=== PATIENT | female | born 1980 | race Caucasian/White ===

== ENCOUNTER 2020-11-14 00:08 | Emergency (ER) | payer OTHER ==
[2020-11-14] MEDS ORDERED: Ketorolac Tromethamine 15 MG/ML VIAL ONE (00:44)
[2020-11-14 00:52] LABS: #Monocytes 0.6 10x3/uL (0.0-1.1); #Neutrophils 4.4 10x3/uL (1.5-8.4); %Basophils 0.4 % (0.0-2.0); %Eosinophils 0.5 % (0.0-6.0); %Lymphocytes 37.8 % (18.0-47.0); %Monocytes 7.2 % (0.0-10.0); %Neutrophils 53.9 % (40.0-75.0); Hemoglobin 13.5 g/dL (12.0-15.5); Mean Corpuscular Hemoglobin 25.7 pg (27.0-33.0); Mean Corpuscular Volume 80.2 fl (81.6-98.3); Mean Platelet Volume 9.4 fl (7.4-10.4); Platelet Count 446 10x3/uL (150-450); RBC Distribution Width 12.4 % (11.5-14.5); Red Blood Cell (RBC) Count 5.26 10x6/uL (3.90-5.03); White Blood Cell (WBC) Count 8.1 10x3/uL (3.5-10.5)
[2020-11-14 01:06] LABS: ALT (SGPT) 27 U/L (8-55); AST (SGOT) 16 U/L (5-34); Acetaminophen Less than 6.0 mcg/mL (10.0-30.0); Albumin 4.6 g/dL (3.5-5.0); Alcohol Less than 10 mg/dL (Less than 10); Alkaline Phosphatase 78 U/L (40-110); Anion Gap 17 mmol/L (10-20); BUN (Urea Nitrogen) 14 mg/dL (7.0-18.7); Bilirubin, Total 0.2 mg/dL (0.2-1.2); Calc. Creatinine Clearance 0 mL/min (70-130); Calcium 9.7 mg/dL (7.8-10.44); Carbon Dioxide 25 mmol/L (22-29); Chloride 105 mmol/L (98-107); Globulin 3.1 g/dL (2.4-3.5); Glucose 81 mg/dL (70-105); Lipase 26 U/L (8-78); Magnesium 2.1 mg/dL (1.6-2.6); Potassium 3.5 mmol/L (3.5-5.1); Protein, Total 7.7 g/dL (6.0-8.3); Salicylate 23.6 mg/dL (15.0-30.0); Sodium 143 mmol/L (136-145)
[2020-11-14 02:02] LABS: Amphetamine Detected (NotDetected); Barbiturates Screen Not Detected (NotDetected); Benzodiazepine Screen Not Detected (NotDetected); Cocaine Metabolite Screen Not Detected (NotDetected); Methadone Not Detected (NotDetected); Methamphetamine Detected (NotDetected); Opiate Screen Not Detected (NotDetected); Oxycodone Screen Not Detected (NotDetected); Phencyclidine (PCP) Not Detected (NotDetected); THC/Cannabinoid Screen Not Detected (NotDetected); Tricyclic Screen Not Detected (NotDetected)
== END 2020-11-14 02:11 | disposition home or self-care (01) ==
LOC: CSHERS 00:08
DX: U07.1 COVID-19 (principal); J12.82 Pneumonia due to coronavirus disease 2019; E03.2 Hypothyroidism due to medicaments and other exogenous substances; T50.905A Adverse effect of unspecified drugs, medicaments and biological substances, initial encounter; I50.9 Heart failure, unspecified; M32.9 Systemic lupus erythematosus, unspecified; F17.290 Nicotine dependence, other tobacco product, uncomplicated; Z79.899 Other long term (current) drug therapy
CPT/HCPCS: 71275; 80053; 80306; 80307; 83690; 83735; 83880; 84439; 84443; 84484; 85025; 85379; 93005; 96374; J1885

== ENCOUNTER 2021-09-06 04:23 | Emergency (ER) | payer OTHER ==
[2021-09-06] MEDS ORDERED: Oxymetazoline HCl 0.05% ( 15 ML ) ONE (04:46)
[2021-09-06] MEDS ORDERED: Acetaminophen 500 MG TAB ONE (04:47)
[2021-09-06] MEDS ORDERED: Lidocaine 2% PF 5 ML VIAL ONE (05:26)
== END 2021-09-06 05:45 | disposition home or self-care (01) ==
LOC: CSHERS 04:23
DX: H92.02 Otalgia, left ear (principal); I50.9 Heart failure, unspecified; E03.9 Hypothyroidism, unspecified; F17.290 Nicotine dependence, other tobacco product, uncomplicated; Z79.899 Other long term (current) drug therapy
CPT/HCPCS: 99282; J2001

== ENCOUNTER 2023-12-16 16:28 | Emergency (ER) | payer OTHER ==
[2023-12-16] MEDS ORDERED: Ibuprofen 200 MG TAB ONE (17:05)
== END 2023-12-16 17:37 | disposition home or self-care (01) ==
LOC: CSHERS 16:28
DX: S91.301A Unspecified open wound, right foot, initial encounter (principal); I50.9 Heart failure, unspecified; F17.290 Nicotine dependence, other tobacco product, uncomplicated; X58.XXXA Exposure to other specified factors, initial encounter

== ENCOUNTER 2025-05-14 13:07 | Emergency (ER) | payer MEDICAID, OTHER | END 2025-05-14 14:58 | disposition home or self-care (01) | LOC: CSHERS 13:07 | DX: G43.909 Migraine, unspecified, not intractable, without status migrainosus (principal); R04.0 Epistaxis; I50.9 Heart failure, unspecified; F17.290 Nicotine dependence, other tobacco product, uncomplicated; E03.9 Hypothyroidism, unspecified; F90.9 Attention-deficit hyperactivity disorder, unspecified type; Z79.890 Hormone replacement therapy | CPT/HCPCS: 99283 ==